=== PATIENT | female | born 1995 | race Caucasian/White ===

== ENCOUNTER 2017-02-25 03:16 | Emergency (ER) | payer MEDICAID ==
[~2017-02-25] VITALS: Ht 167.6 cm; Wt 55.0 kg
[2017-02-25 03:18] VITALS: BP 114/70; PULSE 100; RESP 16; TEMP 97.3; O2SAT 100
[2017-02-25 04:19] LABS: AUTOMATED NEUTROPHIL # 7.4 TH/MM3 (1.8-7.7); BASOPHIL % 0.2 % (0.0-2.0); EOSINOPHIL # 0.2 TH/MM3 (0-0.4); EOSINOPHIL % 1.3 % (0.0-4.0); HEMATOCRIT 37.9 % (35.0-46.0); HEMO FLAGS DIFF FINAL; LYMPH % 29.3 % (9.0-44.0); LYMPHOCYTE # 3.5 TH/MM3 (1.0-4.8); MEAN CELL VOLUME 86.3 FL (80.0-100.0); MEAN CORPUSCULAR HEMOGLOBIN 29.3 PG (27.0-34.0); MEAN CORPUSCULAR HGB CONC 33.9 % (32.0-36.0); MONO % 6.5 % (0.0-8.0); NEUT % 62.7 % (16.0-70.0); PLATELET COUNT 273 TH/MM3 (150-450); RED BLOOD COUNT 4.39 MIL/MM3 (4.00-5.30); RED CELL DISTRIBUTION WIDTH 13.2 % (11.6-17.2); WHITE BLOOD COUNT 11.8 TH/MM3 (4.0-11.0)
[2017-02-25] MEDS ORDERED: PRENTAB36 PO (04:42)
--- NOTE | 2017-02-25 04:43 | PD ---
HPI Chief Complaint: Related Problem Time Seen by Provider: 03:27 Travel History International Travel<30 days: No Contact w/Intl Traveler<30days: No Traveled to known affect area: No History of Present Illness HPI 21-year-old female 2 para 0 (1 miscarry at 8 weeks) arrives with hematuria first noticed about 2-3 hours prior to arrival. She has had ultrasound demonstrated an intrauterine . She is noted to be 12 weeks . She's had no abnormal discharge. She denies fever abdominal pain and dysuria. She has no PMH/PSH. PFSH Past Medical History ADHD: Yes Diminished Hearing: No ?: LMP: 12 wks ago : 2 Miscarriage: 1 Past Surgical History Surgical History: No Previous Surgery Social History Alcohol Use: No Tobacco Use: No (never) Allergies-Medications (Allergen,Severity, Reaction): Coded Allergies: No Known Allergies (Unverified , 02/25/17) Reported Meds & Prescriptions Reported Meds & Active Scripts Active Forte ( Multivit-Min W/Fe-FA) 1 Tab Tab 1 Tab PO DAILY 90 Days Review of Systems Except as stated in HPI: all other systems reviewed are Neg Physical Exam Narrative GENERAL: 21 yo F, WNWD, NAD GENITOURINARY: Deferred per preference of patient SKIN: Warm and dry. HEAD: Atraumatic. Normocephalic. EYES: Pupils equal and round. No scleral icterus. No injection or drainage. ENT: No nasal bleeding or discharge. Mucous membranes pink and moist. NECK: Trachea midline. No JVD. CARDIOVASCULAR: Regular rate and rhythm. RESPIRATORY: No accessory muscle use. Clear to auscultation. Breath sounds equal bilaterally. GASTROINTESTINAL: Abdomen soft, non-tender, nondistended. Hepatic and splenic margins not palpable. MUSCULOSKELETAL: Extremities without clubbing, cyanosis, or edema. No obvious deformities. NEUROLOGICAL: Awake and alert. No obvious cranial nerve deficits. Motor grossly within normal limits. Five out of 5 muscle strength in the arms and legs. Normal speech. PSYCHIATRIC: Appropriate mood and affect; insight and judgment normal. Data Data Last Documented VS Vital Signs Date Time Temp Pulse Resp B/P Pulse Ox O2 Delivery O2 Flow Rate FiO2 02/25/17 03:18 97.3 100 16 114/70 100 Room Air VS reviewed Orders Beta Hcg (Quant/Titer) (02/25/17 03:30) Complete Blood Count With Diff (02/25/17 03:30) Basic Metabolic Panel (Bmp) (02/25/17 03:30) Complete Rh (02/25/17 03:30) Urinalysis - C+S If Indicated (02/25/17 03:30) Iv Access Insert/Monitor (02/25/17 03:30) Ecg Monitoring (02/25/17 03:30) Ed Poc Ultrasound (02/25/17 03:30) Rhogam Only (02/25/17 05:12) Potassium Chloride (Kcl) (02/25/17 05:15) Labs Laboratory Tests Test 02/25/17 02/25/17 03:40 05:12 White Blood Count 11.8 TH/MM3 Red Blood Count 4.39 MIL/MM3 Hemoglobin 12.8 GM/DL Hematocrit 37.9 % Mean Corpuscular Volume 86.3 FL Mean Corpuscular Hemoglobin 29.3 PG Mean Corpuscular Hemoglobin 33.9 % Concent Red Cell Distribution Width 13.2 % Platelet Count 273 TH/MM3 Mean Platelet Volume 8.2 FL Neutrophils (%) (Auto) 62.7 % Lymphocytes (%) (Auto) 29.3 % Monocytes (%) (Auto) 6.5 % Eosinophils (%) (Auto) 1.3 % Basophils (%) (Auto) 0.2 % Neutrophils # (Auto) 7.4 TH/MM3 Lymphocytes # (Auto) 3.5 TH/MM3 Monocytes # (Auto) 0.8 TH/MM3 Eosinophils # (Auto) 0.2 TH/MM3 Basophils # (Auto) 0.0 TH/MM3 CBC Comment DIFF FINAL Differential Comment Sodium Level 138 MEQ/L Potassium Level 3.2 MEQ/L Chloride Level 105 MEQ/L Carbon Dioxide Level 24.2 MEQ/L Anion Gap 9 MEQ/L Blood Urea Nitrogen 7 MG/DL Creatinine 0.46 MG/DL Estimat Glomerular Filtration 173 ML/MIN Rate Random Glucose 82 MG/DL Calcium Level 8.8 MG/DL Human Chorionic Gonadotropin, 7002 MIU/ML Quant Blood Type A NEGATIVE Rho(D) Type NEGATIVE Blood Bank Comment [facility] Medical Decision Making Medical Screen Exam Complete: Yes Emergency Medical Condition: Yes Differential Diagnosis IUP, UTI, ectopic , ov torsion, appendicitis, TOA, cervicitis, BV, Trichomoniasis, ov cyst, hernia, mittelschmerz, pain from menstruation Narrative Course CBC & BMP Diagram 02/25/17 03:40 beta HCG 7002 UA: hematuria, cystitis unlikely A- blood type Potassium replenished. Trans abdominal ultrasound reveals intrauterine without heart rate of about 150. Patient received RhoGAM. Pelvic precautions/pelvic rest discussed. The patient is ready for discharge. She agrees [place] sheet [place] a repeat beta hCG. Procedures Procedure Narrative Transabdominal ultrasound reveals an intrauterine of indeterminate age , heart rate observed approximately 150, no custody assistant fertilization technique employed Diagnosis Primary Impression: Threatened Additional Impression: Hypokalemia Referrals: [facility] 2 days Additional Instructions: You have a choice when it comes to health care, and we are glad that you chose [facility]. Hopefully, we have met your expectations on today's visit. You are welcome to return to [facility] at any time, as we are committed to meeting the health care needs of our community. Med/Other Pt SpecificInfo: Prescription(s) given Scripts Multivit-Min W/Fe-FA ( Forte)1 Tab Tab1 Tab PO DAILY 90 Days Ref 2 Prov:Shoaib Oliveira MD 02/25/17 Disposition: 01 DISCHARGE HOME Condition: Stable Shoaib Oliveira MD Feb 25, 2017 04:43
[2017-02-25 04:50] LABS: BICARBONATE 24.2 MEQ/L (21.0-32.0); POTASSIUM 3.2 MEQ/L (3.5-5.1)
[2017-02-25] MEDS ORDERED: POTASSIUM CHLORIDE 20 MEQ CONTROLLED RELEASE TAB PO ONE (05:15)
[2017-02-25 06:24] LABS: BLOOD, URINE MOD (NEG); COMMENT (UR) CULT NOT INDICATED; CULTURE IF INDICATED CULT NOT INDICATED; GLUCOSE,URINE NEG (NEG); KETONE, URINE NEG (NEG); NITRITE,URINE NEG (NEG); RENAL EPITHELIAL CELLS <1 /hpf; SQUAMOUS EPITHELIAL CELL URINE 4 /hpf (0-5); URINE COLOR LIGHT-YELLOW (YELLW/STRAW)
== END 2017-02-25 06:53 | disposition home or self-care (01) ==
LOC: NEPC 03:16
DX: O20.0 Threatened abortion (principal); E87.6 Hypokalemia
CPT/HCPCS: 80048; 81001; 84702; 85025; 86901; 90384; 96372; J2790